=== PATIENT | male | born 1985 | race Two or more races ===

== ENCOUNTER 2020-12-10 23:11 | Emergency (ER) | payer SELFPAY ==
[~2020-12-10] VITALS: Ht 172.7 cm; Wt 62.6 kg
--- NOTE | 2020-12-10 23:40 | NUR ---
URINE COLLECTED. SENT TO LAB
--- NOTE | 2020-12-10 23:40 | NUR ---
PATIENT BIBSELF WITH C/O EPIGASTRIC PAIN RADIATING TO BACK X 10 DAYS. PATIENT IS A/O X 4, STALBE ON ROOM AIR, CONNECTED TO MONITOR. PATIENT DENIES N/V/D. WILL CONTINUE TO MONITOR.
[2020-12-11] MEDS ORDERED: ONDANSETRON HCL/PF 4 MG/2 ML VIAL IVP ONE
[2020-12-11] MEDS ORDERED: IV NS 0.9% 1,000 ML BAG IV ONE
[2020-12-11] MEDS ORDERED: MORPHINE SULFATE INJ 2 MG/ML DISP.SYRIN IV ONE
--- NOTE | 2020-12-11 | NUR ---
BLOOD SAMPLE COLLECT AND SENT TO LAB
[2020-12-11] MEDS ORDERED: ONDANSETRON HCL/PF 4 MG/2 ML VIAL ONE (00:09)
[2020-12-11] MEDS ORDERED: MORPHINE SULFATE INJ 2 MG/ML DISP.SYRIN ONE (00:09)
--- NOTE | 2020-12-11 00:10 | NUR ---
ADDENDUM: Intravenous End Time Documentation: Normal saline 1 liter (IV-WO) : start time: 0010 am ; end time:0110 am : IV site: LAC # 18 Port #1
--- NOTE | 2020-12-11 00:15 | NUR ---
EKG AT BEDSIDE
[2020-12-11 00:22] LABS: BASOPHILS % (AUTO) 0.3 % (0.0-2.0); EOSINOPHILS % (AUTO) 1.8 % (0.0-6.0); HEMATOCRIT 45 % (39-51); HEMOGLOBIN 15.1 g/dL (13.5-17.5); LYMPHOCYTES # (AUTO) 3.4 /CMM (0.8-4.8); LYMPHOCYTES % (AUTO) 30.9 % (20.0-44.0); MEAN CORPUSCULAR HGB CONC 33 g/dl (31.0-36.0); MEAN CORPUSCULAR VOLUME 96 fL (80-96); MONOCYTES # (AUTO) 0.8 /CMM (0.1-1.30); MONOCYTES % (AUTO) 7.1 % (2.0-12.0); NEUTROPHILS # (AUTO) 6.6 /CMM (1.8-8.9); NEUTROPHILS % (AUTO) 59.9 % (43.0-81.0); PLATELET COUNT (AUTO) 173 /CMM (150-450); RED BLOOD CELL COUNT(AUTO) 4.74 MIL/uL (4.5-6.0); WHITE BLOOD COUNT (AUTO) 11.1 K/uL (4.3-11.0)
--- NOTE | 2020-12-11 00:25 | NUR ---
pt was taken to CT
--- NOTE | 2020-12-11 00:35 | NUR ---
PATIENT RETURNED FROM CT
[2020-12-11] MEDS ORDERED: DICY10CA37 PO (01:00)
[2020-12-11 01:10] VITALS: BP 119/78
[2020-12-11 01:11] LABS: ALANINE AMINOTRANSFERASE 29 U/L (12-78); ALBUMIN 3.8 g/dL (3.4-5.0); ALKALINE PHOSPHATASE 61 U/L (46-116); ASPARTATE AMINOTRANSFERASE 17 U/L (15-37); BILIRUBIN,DIRECT 0.1 mg/dL (0.0-0.2); BILIRUBIN,TOTAL 0.3 mg/dL (0.2-1.0); CARBON DIOXIDE 29 mmol/L (21-32); CHLORIDE 105 mmol/L (98-107); GLUCOSE 99 mg/dL (74-106); LIPASE 151 U/L (73-393); SODIUM SERUM 144 mmol/L (136-145); TOTAL PROTEIN, SERUM 7.5 g/dL (6.4-8.2); UREA NITROGEN, BLOOD 21 mg/dL (7-18)
--- NOTE | 2020-12-11 01:11 | NUR ---
Patient discharged to home in stable condition. Rx And Written and verbal after care instructions given. Patient verbalizes understanding of instruction. ambulatory with a steady gait.
== END 2020-12-11 01:12 | disposition home or self-care (01) ==
LOC: ER 23:12
DX: K52.9 Noninfective gastroenteritis and colitis, unspecified (principal); Z98.890 Other specified postprocedural states
CPT/HCPCS: 36415; 74176; 80048; 80076; 83690; 84484; 85025; 93005; 96361; 96374; 96375; 99285; J2270; J2405; J7030

== ENCOUNTER 2022-02-26 20:44 | Emergency (ER) | payer BC ==
[~2022-02-26] VITALS: Ht 170.2 cm; Wt 64.9 kg
[~2022-02-26 20:44] MED LIST: DICY10CA37 PO
--- NOTE | 2022-02-26 21:00 | NUR ---
BIBS C/O MID CHEST PAIN RADIATING TO MID BACK X5DAYS "WORSE AFTER EATING". PT A/OX4; SCOTTISH SPEAKING. TOLERATING R/A WELL; RESP EVEN AND NON LABORED. CONNECTED PT TO POX AND MONITOR. SAFETY MEASURES IN PLACE.
--- NOTE | 2022-02-26 21:21 | NUR ---
[employer]PER[employer] AT PT'S BEDSIDE
[2022-02-26] MEDS ORDERED: ASPIRIN 81 MG TAB.CHEW ONE (21:24)
--- NOTE | 2022-02-26 21:29 | NUR ---
LAC #18G S/L BLOOD COLLECTED AND SENT TO LAB
[2022-02-26] MEDS ORDERED: ASPIRIN 81 MG TAB.CHEW PO ONE (21:30)
[2022-02-26 21:44] LABS: BASOPHILS % (AUTO) 0.6 % (0.0-2.0); HEMATOCRIT 44 % (39-51); HEMOGLOBIN 14.8 g/dL (13.5-17.5); LYMPHOCYTES # (AUTO) 2.6 K/uL (0.8-4.8); MEAN CORPUSCULAR HGB CONC 34 g/dl (31.0-36.0); MEAN CORPUSCULAR VOLUME 96 fL (80-96); MONOCYTES # (AUTO) 0.5 K/uL (0.1-1.30); MONOCYTES % (AUTO) 7.7 % (2.0-12.0); NEUTROPHILS # (AUTO) 3.6 K/uL (1.8-8.9); NEUTROPHILS % (AUTO) 52.7 % (43.0-81.0); PLATELET COUNT (AUTO) 166 K/uL (150-450); RED BLOOD CELL COUNT(AUTO) 4.62 MIL/uL (4.5-6.0); WHITE BLOOD COUNT (AUTO) 6.9 K/uL (4.3-11.0)
[2022-02-26 22:04] LABS: CARBON DIOXIDE 31 mmol/L (21-32); CHLORIDE 103 mmol/L (98-107); GLUCOSE 110 mg/dL (74-106); POTASSIUM 3.6 mmol/L (3.5-5.1); SODIUM SERUM 140 mmol/L (136-145); UREA NITROGEN, BLOOD 21 mg/dL (7-18)
[2022-02-26 22:09] LABS: ALANINE AMINOTRANSFERASE 34 U/L (12-78); ALBUMIN 4.1 g/dL (3.4-5.0); ALKALINE PHOSPHATASE 61 U/L (46-116); ASPARTATE AMINOTRANSFERASE 25 U/L (15-37); BILIRUBIN,DIRECT 0.1 mg/dL (0.0-0.2); BILIRUBIN,TOTAL 0.5 mg/dL (0.2-1.0); TOTAL PROTEIN, SERUM 7.9 g/dL (6.4-8.2)
[2022-02-26 22:48] VITALS: BP 125/75
--- NOTE | 2022-02-26 23:59 | NUR ---
IV removed. Catheter intact and site benign. Pressure and 4x4 applied to site. No bleeding noted.
--- NOTE | 2022-02-27 | NUR ---
Patient does not wish to proceed with medical care recommended by Dr. Michaela GORDON. Patient given information related to possible complications, up to and including , which could occur as a result of leaving the hospital at this time. Patient verbalizes understanding of risks involved due to leaving against medical advice. Patient has signed AMA form.
[2022-02-27 04:45] LABS: LIPASE 108 U/L (73-393)
== END 2022-02-27 | disposition left against medical advice (07) ==
LOC: ER 20:50
DX: I70.90 Unspecified atherosclerosis (principal); R07.89 Other chest pain; F17.200 Nicotine dependence, unspecified, uncomplicated; F10.10 Alcohol abuse, uncomplicated; Z82.49 Family history of ischemic heart disease and other diseases of the circulatory system; Z98.890 Other specified postprocedural states; Y90.9 Presence of alcohol in blood, level not specified
CPT/HCPCS: 36415; 71045-TC; 80048-TC; 80076-TC; 83690-TC; 84484-TC; 85025-TC